=== PATIENT | female | born 1955 | race Caucasian/White ===

== ENCOUNTER 2017-11-17 08:35 | Emergency (ER) | payer MEDICARE, OTHER ==
[~2017-11-17] VITALS: Ht 154.9 cm; Wt 100.0 kg
[~2017-11-17 08:35] MED LIST: ABIL30TA5 PO; AMLO10TA2 PO; ASPI81TA19 PO; CARV6.25 PO; FAMO20TA2 PO; FERR300S PO; FURO1TAB62 PO; GLIM4TAB PO; ISOS30TA3 PO; LEVO125T4 PO; LISI-515 PO; MAGN400T PO; NITR100C4 PO; TRAD5TAB PO; TRAZ50TA12 PO; VENL75TA2 PO; VITA100018 PO; ZOCO20TA PO
[2017-11-17 08:37] VITALS: BP 175/81; PULSE 84; RESP 14; TEMP 98.1; O2SAT 97
[2017-11-17 08:50] VITALS: RESP 16; O2SAT 97
[2017-11-17] MEDS ORDERED: LEVO137T2 PO (08:53)
[2017-11-17] MEDS ORDERED: LISI40TA PO (08:53)
[2017-11-17] MEDS ORDERED: DOXA1TAB36 PO (08:53)
[2017-11-17] MEDS ORDERED: GLIM4TAB PO (08:53)
[2017-11-17] MEDS ORDERED: RISP0.5T25 PO (08:53)
[2017-11-17 09:00] VITALS: BP 142/63; PULSE 78; RESP 16; O2SAT 96
[2017-11-17] MEDS ORDERED: SODIUM CHLOR 0.9% 1000 ML INJ 1,000 ML IV SCH (09:05)
--- NOTE | 2017-11-17 09:05 | PD ---
HPI Chief Complaint: ENT Complaint Time Seen by Provider: 08:50 Travel History International Travel<30 days: No Contact w/Intl Traveler<30days: No Traveled to known affect area: No History of Present Illness HPI Patient is a 62-year-old female type II diabetic mentally handicapped presents emergency department from her [facility] with her [facility]URSING HOME manager package for evaluation of bilateral ear pain as well as hyperglycemia. The patient is unable to provide any of her history secondary to fairly poor and now wants mental handicap, her caregiver states that they have been trying to get her sugar under control for a while and they have changed her medications recently. The patient is not on metformin and not on insulin. They state the patient had been complaining of a sore throat and cough at the facility so they brought her in to be seen. No nausea no vomiting no abdominal pain no diarrhea. She states that the patient is pretty much allowed to eat any thing she wants and typically eats hyper carbohydrate diets. States symptoms are mild, for the past few days, context and associated signs and symptoms as above PFSH Past Medical History Arthritis: Yes Bipolar Disorder: Yes Anxiety: Yes Depression: Yes Cancer: No High Cholesterol: Yes Cerebrovascular Accident: Yes Diabetes: Yes Patient Takes Glucophage: No GERD: Yes Genitourinary: No Hypertension: Yes Implanted Vascular Access Dvce: No Musculoskeletal: Yes (knees) Neurologic: No Psychiatric: Yes Reproductive: No Respiratory: No Myocardial Infarction: Yes Past Surgical History Cardiac Surgery: Yes (PT STATES SHE'S HAD A SURGERY WHEN SHE HAD AN SD BUT CAN RECALL THE NAME) Coronary Artery Bypass Graft: Yes Tonsillectomy: Yes Other Surgery: Yes Social History Alcohol Use: No Tobacco Use: No Substance Use: No Allergies-Medications (Allergen,Severity, Reaction): Coded Allergies: penicillin G (Unverified Allergy, Mild, 11/17/17) Reported Meds & Prescriptions Reported Meds & Active Scripts Active Keflex (Cephalexin) 500 Mg Capsule 500 Mg PO Q6H 7 Days Reported Doxazosin (Doxazosin Mesylate) 1 Mg Tab 1 Mg PO HS Risperdal (Risperidone) 0.5 Mg Tab 0.5 Mg PO BID Glimepiride 4 Mg Tab 4 Mg PO BIDAC Levothyroxine (Levothyroxine Sodium) 137 Mcg Tab 137 Mcg PO DAILY Lisinopril 40 Mg Tab 40 Mg PO DAILY Abilify (Aripiprazole) 30 Mg Tab 30 Mg PO HS Trazodone (Trazodone HCl) 50 Mg Tab 50 Mg PO HS Zocor (Simvastatin) 20 Mg Tab 20 Mg PO HS Ferrous Sulfate Liq (Ferrous Sulfate) 300 Mg/5 Ml Soln 300 Mg PO TID Famotidine 20 Mg Tab 20 Mg PO BID Coreg (Carvedilol) 6.25 Mg Tab 6.25 Mg PO BID Venlafaxine ER 24 HR (Venlafaxine HCl) 75 Mg Tab 225 Mg PO DAILY Magnesium Oxide 400 Mg Tab 400 Mg PO DAILY Vitamin D3 (Cholecalciferol) 1,000 Unit Tab 1,000 Units PO DAILY Nitrofurantoin Monohydrate Macrocrystals (Nitrofurantoin Monoh/Nitrofur Macro) 100 Mg Cap 100 Mg PO DAILY Isosorbide Mononitrate ER (Isosorbide Mononitrate) 30 Mg Ama 30 Mg PO DAILY Lasix (Furosemide) 20 Mg Tab 20 Mg PO DAILY Aspir-Low (Aspirin) 81 Mg Tabdr 81 Mg PO DAILY Review of Systems Except as stated in HPI: all other systems reviewed are Neg Physical Exam Narrative GENERAL: Well-developed, well-nourished elderly mentally handicapped female in no obvious distress SKIN: Focused skin assessment warm/dry. HEAD: Atraumatic. Some facial features of Down syndrome EYES: Pupils equal and round. No scleral icterus. No injection or drainage. ENT: No nasal bleeding or discharge. Mucous membranes pink and moist. The right TM does have fluid behind the ear and possibly a small amount of erythema but certainly not bulging, left TM normal, no mastoid tenderness bilaterally, oropharynx clear moist NECK: Trachea midline. No JVD. CARDIOVASCULAR: Regular rate and rhythm. No murmur appreciated. RESPIRATORY: No accessory muscle use. Clear to auscultation. Breath sounds equal bilaterally. GASTROINTESTINAL: Abdomen soft, non-tender, nondistended. Hepatic and splenic margins not palpable. MUSCULOSKELETAL: No obvious deformities. No clubbing. No cyanosis. No edema. NEUROLOGICAL: Awake and alert. No obvious cranial nerve deficits. Motor grossly within normal limits. Normal speech. PSYCHIATRIC: Appropriate mood and affect; insight and judgment normal. Data Data Last Documented VS Vital Signs Date Time Temp Pulse Resp B/P (MAP) Pulse Ox O2 Delivery O2 Flow Rate FiO2 11/17/17 13:11 11/17/17 12:39 72 16 97 Room Air 11/17/17 08:37 98.1 Orders Orders Chest, Pa & Lat (11/17/17 ) Influenzae A/B Antigen (11/17/17 08:58) Group A Rapid Strep Screen (11/17/17 08:58) Basic Metabolic Panel (Bmp) (11/17/17 09:05) Complete Blood Count With Diff (11/17/17 09:05) Urinalysis - C+S If Indicated (11/17/17 09:05) Iv Access Insert/Monitor (11/17/17 09:05) Ecg Monitoring (11/17/17 09:05) Oximetry (11/17/17 09:05) Sodium Chlor 0.9% 1000 Ml Inj (Ns 1000 M (11/17/17 09:05) Sodium Chloride 0.9% Flush (Ns Flush) (11/17/17 09:15) Strep Culture (Group A) (11/17/17 09:23) Insulin Human Regular Inj (Novolin R Inj (11/17/17 11:00) Insulin Human Regular Inj (Novolin R Inj (11/17/17 11:45) Urinalysis - C+S If Indicated (11/17/17 12:26) Ed Discharge Order (11/17/17 13:02) Labs Laboratory Tests Test 11/17/17 09:10 White Blood Count 8.3 TH/MM3 Red Blood Count 4.71 MIL/MM3 Hemoglobin 13.2 GM/DL Hematocrit 39.1 % Mean Corpuscular Volume 83.1 FL Mean Corpuscular Hemoglobin 28.1 PG Mean Corpuscular Hemoglobin Concent 33.9 % Red Cell Distribution Width 13.5 % Platelet Count 157 TH/MM3 Mean Platelet Volume 8.3 FL CBC Comment AUTO DIFF Differential Total Cells Counted 100 Neutrophils % (Manual) 83 % Band Neutrophils % 2 % Lymphocytes % 11 % Monocytes % 4 % Neutrophils # (Manual) 7.1 TH/MM3 Differential Comment FINAL DIFF MANUAL Platelet Estimate NORMAL Platelet Morphology Comment NORMAL Red Cell Morphology Comment NORMAL Blood Urea Nitrogen 43 MG/DL Creatinine 2.12 MG/DL Random Glucose 484 MG/DL Calcium Level 9.2 MG/DL Sodium Level 135 MEQ/L Potassium Level 4.8 MEQ/L Chloride Level 99 MEQ/L Carbon Dioxide Level 29.3 MEQ/L Anion Gap 7 MEQ/L Estimat Glomerular Filtration Rate 24 ML/MIN MDM Medical Decision Making Medical Screen Exam Complete: Yes Emergency Medical Condition: Yes Differential Diagnosis Otitis media, hyperglycemia, severe bacterial illness unlikely. Narrative Course Patient is 60-year-old female presents emergency department with fairly asymptomatic hyperglycemia, she is unable to provide most of her history secondary to her mental handicap, she was found to be significantly hyperglycemic with blood sugar in the 480s, it took a total of 10 units of IV insulin to control her sugar, no evidence of DKA, she has some mild evidence of otitis media, chest x-ray negative, influenza and strep testing negative, will be placed on short dose Keflex, I wanted to check her urine but the patient was unable to provide sample for me and Keflex was therefore chosen to cover possibility for small ear infection as well as possibility for urinary tract infection. Discussed with the patient's provider that it does take a fair amount of insulin to control the patient's sugar and she needs to discuss with her regular physician the possibility of starting insulin long-term but the management of her long-term insulin is best handled by the providers in our best. She is stable for discharge at this time and discuss returning to criteria Diagnosis Primary Impression: Otitis media Additional Impression: Hyperglycemia Med/Other Pt SpecificInfo: Prescription(s) given Scripts Cephalexin (Keflex) 500 Mg Capsule 500 MG PO Q6H for Infection for 7 Days, #28 CAP 0 Refills Prov: Franko Moreno MD 11/17/17 Disposition: 01 DISCHARGE HOME Condition: Stable Franko Moreno MD Nov 17, 2017 09:05
[2017-11-17] MEDS ORDERED: SODIUM CHLORIDE 0.9% FLUSH 10 ML FLUSH IV FLUSH PRN (09:15)
--- NOTE | 2017-11-17 09:29 | RADRPT ---
EXAM DATE/TIME: 11/17/2017 09:13 [facility] COMPARISON: No previous studies available for comparison. INDICATIONS : Cough. MEDICAL HISTORY : None. SURGICAL HISTORY : None. ENCOUNTER: Initial ACUITY: 1 week PAIN SCORE: 0/10 LOCATION: Bilateral chest FINDINGS: The patient is status post sternotomy. The heart size is normal. The lungs are clear. Spurs are seen in the thoracic spine. CONCLUSION: No acute disease. Bernard Stevens MD on November 17, 2017 at 9:27 Board Certified Radiologist. This report was verified electronically.
[2017-11-17 09:51] LABS: HEMATOCRIT 39.1 % (35.0-46.0); HEMOGLOBIN 13.2 GM/DL (11.6-15.3); MEAN CELL VOLUME 83.1 FL (80.0-100.0); MEAN CORPUSCULAR HEMOGLOBIN 28.1 PG (27.0-34.0); MEAN CORPUSCULAR HGB CONC 33.9 % (32.0-36.0); MEAN PLATELET VOLUME 8.3 FL (7.0-11.0); PLATELET COUNT 157 TH/MM3 (150-450); RED BLOOD COUNT 4.71 MIL/MM3 (4.00-5.30); RED CELL DISTRIBUTION WIDTH 13.5 % (11.6-17.2); WHITE BLOOD COUNT 8.3 TH/MM3 (4.0-11.0)
[2017-11-17 10:13] LABS: BICARBONATE 29.3 MEQ/L (21.0-32.0); CALCIUM 9.2 MG/DL (8.5-10.1); CREATININE 2.12 MG/DL (0.50-1.00)
[2017-11-17 10:23] LABS: BANDS 2 % (0-6); LYMPHOCYTES 11 % (9-44); MONOCYTES 4 % (0-8); NEUTROPHIL # MANUAL DIFF 7.1 TH/MM3 (1.8-7.7); POLYS (SEG NEUTROPHILS) 83 % (16-70)
[2017-11-17 11:00] VITALS: BP 146/63; PULSE 66; RESP 18; O2SAT 97
[2017-11-17] MEDS ORDERED: INSULIN HUMAN REGULAR 1,000 UNITS/10 ML VIAL IV PUSH ONE ×2 (11:00→11:45)
[2017-11-17] MEDS ORDERED: CEPH-460 PO (11:31)
[2017-11-17 12:39] VITALS: BP 156/70; PULSE 72; RESP 16; O2SAT 97
== END 2017-11-17 13:12 | disposition home or self-care (01) ==
LOC: NEPC 08:35
DX: H66.90 Otitis media, unspecified, unspecified ear (principal); E11.65 Type 2 diabetes mellitus with hyperglycemia; E78.00 Pure hypercholesterolemia, unspecified; F31.9 Bipolar disorder, unspecified; F41.9 Anxiety disorder, unspecified; I10 Essential (primary) hypertension; K21.9 Gastro-esophageal reflux disease without esophagitis; F79 Unspecified intellectual disabilities; Z86.73 Personal history of transient ischemic attack (TIA), and cerebral infarction without residual deficits
CPT/HCPCS: 71046; 80048; 85007; 85027; 87081; 87804; 87880; 96361; 96374; 96376; 99284; J1815; J7030